=== PATIENT | male | born 1970 | race Caucasian/White ===

== ENCOUNTER 2018-06-30 06:24 | Day surgery (SDC) | payer OTHER ==
[2018-06-30] VITALS (12 sets, daily range): BP systolic 111–136; BP diastolic 70–82; PULSE 75–92; RESP 12–72; Ht 175.3 cm; Wt 96.3 kg
[~2018-06-30] VITALS: Ht 175.3 cm; Wt 96.3 kg
[2018-06-30] MEDS ORDERED: PROPOFOL 200 MG INJ ONE (07:00)
[2018-06-30] MEDS ORDERED: SEVOFLURANE 15 MIN ONE (07:00)
[2018-06-30] MEDS ORDERED: CEFAZOLIN 1 GM INJ ONE (07:00)
[2018-06-30] MEDS ORDERED: LISI10TA2 PO (07:20)
--- NOTE | 2018-06-30 07:43 | HPN ---
Date/Time of Note Date/Time of Note DATE: 06/30/18 TIME: 07:43 Interval H&P Admission Note Pt. seen H&P reviewed: No system changes MILES BAI MD Jun 30, 2018 07:43
[2018-06-30] MEDS ORDERED: LACTATED RINGER'S 1,000 ML IV SCH (08:00)
[2018-06-30] MEDS ORDERED: BUPIVACAINE 0.25%/EPI (SDV) 30 ML INJ ONE (08:45)
--- NOTE | 2018-06-30 08:55 | PREAC ---
Date/Time of Note Date/Time of Note DATE: 06/30/18 TIME: 08:54 Anesthesia Eval and Record Evaluation Time Pre-Procedure Interview DATE: 06/30/18 TIME: 08:54 Age 47 Sex male NPO: 8 hrs Preoperative diagnosis lipoma right posterior scalp Planned procedure Excision lipoma right posterior scalp Past Medical History Past Medical History: Includes Cardio: HTN GI: Obesity Surgery & Anesthesia Issues No known issue Meds Anticoagulation: No Beta Britta within 24 hr: No Reason Beta Britta not given: Pt. not on B-Britta Reported Medications Lisinopril* (Lisinopril*) 10 Mg Tablet, 10 MG PO DAILY, #30 TAB 06/30/18 Current Medications Lactated Ringer's 1,000 ml @ 30 mls/hr Q24H IV ; Start 06/30/18 at 08:00 Meds reviewed: Yes Allergies Coded Allergies: No Known Allergy (Unverified , 06/30/18) Allergies Reviewed: Yes Labs/Studies Labs Reviewed: Reviewed by anesthesiologist test: N/A Studies: ECG, CXR Pre-procedure Exam Last vitals Vital Signs Date Temp Pulse Resp B/P (MAP) Pulse Ox O2 O2 Flow FiO2 Time Delivery Rate 06/30/18 97.7 75 16 121/78 97 07:48 (92) Airway: Adequate mouth opening, Adequate thyromental dist Mallampati: Mallampati II Teeth: Normal Lung: Normal Heart: Normal ASA Physical Status ASA physical status: 2 Emergency: None Planned Anesthetic General/MAC: LMA Planned Pain Management Parenteral pain med, Local by surgeon Pre-operative Attestations Prior to commencing anesthesia and surgery, the patient was re-evaluated, there was verification of: *The patient's identity *The results of appropriate recent lab work and preoperative vital signs *The above evaluation not changing prior to induction *Anesthetic plan, risk benefits, alternative and complications discussed with patient/family; questions answered; patient/family understands, accepts and wishes to proceed. LUDWIG SLOAN MD Jun 30, 2018 08:55
[2018-06-30] MEDS ORDERED: FENTAnyl 50 MCG/ML VIAL ONE (09:06)
[2018-06-30] MEDS ORDERED: MIDAZOLAM 1 MG/ML 2 ML INJ ONE (09:06)
[2018-06-30] MEDS ORDERED: ONDANSETRON 4 MG INJ ONE (09:14)
[2018-06-30] MEDS ORDERED: DEXAMETHASONE 4 MG/ML 5 ML INJ ONE (09:14)
[2018-06-30] MEDS ORDERED: FAMOTIDINE 20 MG INJ ONE (09:14)
[2018-06-30] MEDS ORDERED: PROPOFOL 40 ML ONE (09:14)
[2018-06-30] MEDS ORDERED: EPHEDrine 25 MG/5 ML SYG ONE (09:46)
[2018-06-30] MEDS ORDERED: LIDOCAINE 2% (SDV) 5 ML INJ ONE (09:46)
[2018-06-30] MEDS ORDERED: MEPERIDINE 25 MG INJ IV PRN (10:00)
[2018-06-30] MEDS ORDERED: PROCHLORPERAZINE 10 MG INJ IV PRN (10:00)
[2018-06-30] MEDS ORDERED: HYDROmorphONE 1 MG/5 ML IV SYRINGE IV PRN ×3 (10:00)
[2018-06-30] MEDS ORDERED: ONDANSETRON 4 MG INJ IV PRN ×2 (10:00→10:30)
[2018-06-30] MEDS ORDERED: DIPHENHYDRAMINE 50 MG INJ IV PRN (10:00)
[2018-06-30] MEDS ORDERED: FENTAnyl 50 MCG/ML VIAL IV PRN ×3 (10:00)
[2018-06-30] MEDS ORDERED: OXYCODONE/ACETAMINOPHEN (5/325) TAB PO PRN ×3 (10:00→10:30)
--- NOTE | 2018-06-30 10:09 | OPR ---
Date/Time of Note Date/Time of Note DATE: 06/30/18 TIME: 10:06 Operative Report Procedure Date: Jun 30, 2018 Preoperative Diagnosis Mass right posterior neck Postoperative Diagnosis 4 cm subfascial lipoma right posterior neck Operation/Procedure Performed Excision Surgeon Miles Bai MD Violin Teacher None Anesthesia Type: general Anesthesiologist: LUDWIG SLOAN MD Estimated Blood Loss: minimal Transfusion none Specimen Lipoma Grafts/Implants none Tubes/Drains None Complications none Pt Condition Post Procedure: stable Disposition: PACU Indications Enlarging and uncomfortable Procedure Description After satisfactory general anesthesia was achieved, the patient was placed in right lateral decubitus position and the junction of the posterior scalp and upper right neck were clipped prepped and draped. A 4 cm transverse skin incision was made directly over the mass and carried down subcutaneous tissues. The mass was subfascial. The fascia was opened revealing a lipomatous mass. This mass was excised in its entirety using blunt and electrocautery dissection. The specimen was submitted the total hemostasis was completed with electrocautery. The wound was cc of point 2 5% Marcaine with epinephrine. The fascia was closed with interrupted 3-0 Vicryl suture and skin closed with running 3-0 subcuticular Vicryl. Sponge and needle counts were reported as correct x2. MILES BAI MD Jun 30, 2018 10:09
--- NOTE | 2018-06-30 10:16 | PAC ---
Date/Time of Note Date/Time of Note DATE: 06/30/18 TIME: 10:16 Post-Anesthesia Notes Post-Anesthesia Note Last documented vital signs Vital Signs Date Temp Pulse Resp B/P (MAP) Pulse Ox O2 O2 Flow FiO2 Time Delivery Rate 06/30/18 88 17 111/70 99 Mask 6.0 10:15 (84) 06/30/18 98.3 10:09 Activity: WNL Respiratory function: WNL Cardiovascular function: WNL Mental status: Baseline Pain reasonably controlled: Yes Hydration appropriate: Yes Nausea/Vomiting absent: Yes Comments BP: 139/80 HR: 97 RR: 15 T: 98.3 SaO2: 98% LUDWIG SLOAN MD Jun 30, 2018 10:16
[2018-06-30] MEDS ORDERED: morphine 2 MG INJ IV PRN (10:30)
== END 2018-06-30 11:23 | disposition home or self-care (01) ==
LOC: SDS 06:24
PROVIDERS: ATTEND Surgery
DX: D17.0 Benign lipomatous neoplasm of skin and subcutaneous tissue of head, face and neck (principal); I10 Essential (primary) hypertension; E66.9 Obesity, unspecified
CPT/HCPCS: 21556; 88304; J0690; J1100; J1170; J2250; J2405; J3010